=== PATIENT | male | born 1960 | race Caucasian/White ===

== ENCOUNTER → 2016-11-07 | Outpatient (CLI) | payer BC, MEDICAID ==
[2016-11-07 07:52] LABS: CH 30.6; CHCM 32.3; HCT 48.9 % (39.0-53.0); HDW 2.29; HGB 15.9 gm/dL (13.0-17.5); MCHC 32.6 g/dL (31.0-37.0); MCV 95.1 fL (80.0-100.0); Mean Platelet Volume 8.4; RBC 5.14 m/uL (4.30-5.90); RDW 12.6 % (11.5-15.5); WBC 6.9 k/uL (3.8-10.6)
[2016-11-07 10:53] LABS: ALT 36 U/L (21-72); AST 25 U/L (17-59); Alkaline Phosphatase 90 U/L (38-126); Anion Gap 10 mmol/L; Bilirubin, Delta 0.4 mg/dL (0.0-0.2); Blood Urea Nitrogen 18 mg/dL (9-20); Calcium 9.7 mg/dL (8.4-10.2); Carbon Dioxide 27 mmol/L (22-30); Chloride 107 mmol/L (98-107); Cholesterol 187 mg/dL (<200); Glucose 98 mg/dL (74-99); HDL Cholesterol 45 mg/dL (40-60); Non-African American GFR(MDRD) >60 (>60 ml/min/1.73 sqM); Potassium 5.2 mmol/L (3.5-5.1); Sodium 144 mmol/L (137-145); Total Bilirubin 0.9 mg/dL (0.2-1.3); Total Protein 7.5 g/dL (6.3-8.2); Triglycerides 73 mg/dL (<150)
[2016-11-07 11:26] LABS: Prostate Specific Antigen 0.93 ng/mL (0.00-4.00)
== END | disposition home or self-care (01) ==
LOC: LABWHC1 07:28
PROVIDERS: ATTEND Family Medicine
DX: Z71.3 Dietary counseling and surveillance (principal); Z71.89 Other specified counseling; Z12.5 Encounter for screening for malignant neoplasm of prostate
CPT/HCPCS: 36415; 80053; 80061; 82248; 84153; 84439; 84443; 85027

== ENCOUNTER → 2016-12-24 | Outpatient (CLI) | payer BC, MEDICAID ==
--- NOTE | 2016-12-24 12:07 | CT ---
EXAMINATION TYPE: CT heart w calcium score DATE OF EXAM: 12/24/2016 11:46 AM COMPARISON: NONE HISTORY: Screening for cardiovascular disorder. 213.9 CT DLP: 47.1 mGycm Automated exposure control for dose reduction was used. CT CALCIUM SCORING Coronary calcium is a marker for plaque (fatty deposits) in a blood vessel or atherosclerosis (harden ing of the arteries). The presence and amount of calcium detected in a coronary artery by the CT sca n, indicates the presence and amount of atherosclerotic plaque. These calcium deposits appear years before the development of heart disease symptoms such as chest pain and shortness of breath. A calcium score is computed for each of the coronary arteries based upon the volume and density of th e calcium deposits. This can be referred to as your calcified plaque burden. It does not correspond directly to the percentage of narrowing in the artery but does correlate with the severity of the un derlying coronary atherosclerosis. PROCEDURE TECHNIQUE - Prospective Gating was used. Slice thickness: 3mm. Density threshold (HU): 130, Pixel threshold: 3, Algorithm: discrete. RESULTS Region: LM Calcium Score ([place]): 0 Volume (mm3): 0 Mass (g): 0 Region: RCA Calcium Score ([place]): 0 Volume (mm3): 0 Mass (g): 0 Region: LAD Calcium Score ([place]): 1 Volume (mm3): 3 Mass (g): .54 Region: CX Calcium Score ([place]): 0 Volume (mm3): 0 Mass (g): 0 Total: Calcium Score ([place]): 1 Volume (mm3): 3 Mass (g): .54 TOTAL CALCIUM SCORE: 1 OTHER: The lungs as visualized are clear. Mediastinum is within normal limits. IMPRESSION: Calcium Score: 1 Implication: Minimal identifiable plaque. Risk of Coronary Artery Disease: Very unlikely less than 10%
== END | disposition home or self-care (01) ==
LOC: RADXRMAIN 11:06
PROVIDERS: ATTEND Radiology Diagnostic Radiology
DX: Z13.9 Encounter for screening, unspecified (principal)

== ENCOUNTER 2019-09-20 08:03 | Emergency (ER) | payer BC, MEDICAID ==
[2019-09-20 08:28] VITALS: TEMP 98.3
[2019-09-20] MEDS ORDERED: SODIUM CHLORIDE 0.9% 500 ML 500 ML IV STA (08:51)
[2019-09-20] MEDS ORDERED: ASPIRIN 81 MG PO STA (08:52)
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
--- NOTE | 2019-09-20 09:08 | XR ---
EXAMINATION TYPE: XR chest 2V DATE OF EXAM: 09/20/2019 COMPARISON: CT heart December 24, 2016 HISTORY: Difficulty breathing TECHNIQUE: Frontal and lateral views of the chest are obtained. FINDINGS: Overlying EKG leads. There is no focal air space opacity, pleural effusion, or pneumothorax seen. The cardiac silhouette size is within normal limits. The osseous structures are intact. Num erous surgical clips right upper quadrant redemonstrated IMPRESSION: No acute cardiopulmonary process.
[2019-09-20 09:13] LABS: Basophils % (A) 0 %; Eosinophils # (A) 0.1 k/uL (0-0.7); Eosinophils % (A) 1 %; HCT 49.8 % (39.0-53.0); HGB 16.5 gm/dL (13.0-17.5); Lymphocytes # (A) 1.3 k/uL (1.0-4.8); Lymphocytes % (A) 14 %; MCHC 33.1 g/dL (31.0-37.0); MCV 93.7 fL (80.0-100.0); Mean Platelet Volume 8.7; Monocytes # (A) 0.5 k/uL (0-1.0); Monocytes % (A) 6 %; Neutrophils # (A) 7.1 k/uL (1.3-7.7); Neutrophils % (A) 77 %; Platelet Count 171 k/uL (150-450); RBC 5.31 m/uL (4.30-5.90); RDW 12.4 % (11.5-15.5); WBC 9.3 k/uL (3.8-10.6)
[2019-09-20 09:26] LABS: ALT 24 U/L (4-49); AST 31 U/L (17-59); African American GFR (CKD) >90 (>60 ml/min/1.73 sqM); Albumin 4.7 g/dL (3.5-5.0); Alkaline Phosphatase 104 U/L (38-126); Anion Gap 15 mmol/L; Blood Urea Nitrogen 19 mg/dL (9-20); Calcium 9.3 mg/dL (8.4-10.2); Carbon Dioxide 22 mmol/L (22-30); Chloride 105 mmol/L (98-107); Creatine Kinase 51 U/L (55-170); Glucose 106 mg/dL (74-99); Magnesium 2.1 mg/dL (1.6-2.3); Non-African American GFR(CKD) >90 (>60 ml/min/1.73 sqM); Sodium 142 mmol/L (137-145); Total Bilirubin 1.7 mg/dL (0.2-1.3); Total Protein 8.2 g/dL (6.3-8.2)
[2019-09-20 09:30] LABS: Potassium 4.6 mmol/L (3.5-5.1)
[2019-09-20 09:38] LABS: INR 1.1 (<1.2); Partial Thromboplastin Time 22.4 sec (22.0-30.0); Prothrombin Time 10.9 sec (9.0-12.0)
[2019-09-20 09:39] LABS: Appearance,Urine Clear (Clear); Bilirubin,Urine Negative (Negative); Blood,Urine Negative (Negative); Color,Urine Yellow; Glucose,Urine (UA) Negative (Negative); Ketones,Urine 1+ (Negative); Leukocyte Esterase,Urine Negative (Negative); Nitrite,Urine Negative (Negative); Protein,Urine Trace (Negative); Specific Gravity,Urine 1.028 (1.001-1.035)
[2019-09-20 09:46] LABS: D-Dimer 12.79 mg/L FEU (<0.60)
[2019-09-20] MEDS ORDERED: methylPREDNISolone SOD SUCCI 125 MG/2 ML VIAL IV STA (10:08)
[2019-09-20] MEDS ORDERED: FAMOTIDINE 20 MG/2 ML VIAL IV STA (10:08)
[2019-09-20] MEDS ORDERED: diphenhydrAMINE 50 MG/ML 1 ML VIAL IVP STA (10:09)
--- NOTE | 2019-09-20 10:20 | CT ---
EXAMINATION TYPE: CT chest angio for PE DATE OF EXAM: 09/20/2019 COMPARISON: None HISTORY: Elevated d dimer, SOB, chest pain CT DLP: 397.3 mGycm Automated exposure control for dose reduction was used. CONTRAST: CT Chest for pulmonary embolism performed with with IV Contrast, patient injected with 100 mL of Isov ue 370. FINDINGS: LUNGS: Subsegmental areas of consolidation are noted bilaterally greater within the left lower lobe p osteriorly may most likely on the basis of atelectasis. No pneumothorax. Tiny left pleural effusion n oted. No overt failure. MEDIASTINUM: There is a large area of thrombus within the right main pulmonary artery extending to th e secondary branches. There is a smaller secondary branch pulmonary embolism left extending into the distal branches of the upper lobe. Aorta of normal caliber. No evidence of dissection. The heart is m ildly enlarged. Atherosclerotic changes are seen. Very mild coronary artery calcification noted. OTHER: Images of the upper abdomen demonstrate postsurgical change involving the liver correlate cli nically for confirmation. Hypertrophic change of the vertebral column. IMPRESSION: 1. Bilateral acute pulmonary embolism involving the right main pulmonary artery and its secondary\dis edward branches. Smaller component secondary and distal branch left upper lobe acute pulmonary embolism. The right ventricular to left ventricular ratio is greater than [address] rain. 2. Nonspecific groundglass changes involving the lung bases greater on the left. Atelectasis versus p neumonitis or pneumonia correlate clinically. Tiny left pleural effusion noted. 3. Apparent postsurgical change involving the liver correlate clinically.
[2019-09-20] MEDS ORDERED: HEPARIN SODIUM,PORCINE 5,000 UNIT/ML 1 ML VIAL IV PRN (10:27)
[2019-09-20] MEDS ORDERED: HEPARIN SODIUM,PORCINE 10,000 UNIT/ML 1 ML VIAL IV ONE (10:27)
[2019-09-20] MEDS ORDERED: HEPARIN SOD,PORK IN 0.45% NACL 25,000 UNIT in 0.45% NACL 1 250ML.BAG IV SCH (10:30)
[2019-09-20 11:00] VITALS: BP 164/105
[2019-09-20 11:32] VITALS: PULSE 68; RESP 16
== END 2019-09-20 11:32 | disposition other institution (70) ==
LOC: EC 08:03
DX: I26.99 Other pulmonary embolism without acute cor pulmonale (principal); R10.9 Unspecified abdominal pain; M79.662 Pain in left lower leg; Z88.5 Allergy status to narcotic agent
CPT/HCPCS: 36415; 93005; 85379; 83880; 80053; 82550; 83735; 84484; 85025; 85610; 85730; 81003; 87502; 71046; 71275; 99285; 96365; 96375 ×3; 96376; 96361 ×2; J1200; J1644 ×2; J2930; Q9967

== ENCOUNTER → 2020-05-04 | Outpatient (CLI) | payer MEDICAID ==
--- NOTE | 2020-05-04 11:59 | ECHOF ---
Referral Reason:R06.02 shortness of breath MEASUREMENTS -------- HEIGHT: 177.8 cm WEIGHT: 90.7 kg BP: 134/79 RVIDd: 3.6 cm (< 3.3) IVSd: 1.4 cm (0.6 - 1.1) LVIDd: 3.6 cm (3.9 - 5.3) LVPWd: 1.5 cm (0.6 - 1.1) IVSs: 1.7 cm LVIDs: 2.5 cm LVPWs: 2.0 cm LAESV Index (A-L): 33.29 ml/m Ao Diam: 3.0 cm (2.0 - 3.7) AV Cusp: 2.5 cm (1.5 - 2.6) MV EXCURSION: 18.048 mm (> 18.000) MV EF SLOPE: 87 mm/s (70 - 150) EPSS: 0.5 cm MV E Oskar: 0.80 m/s MV DecT: 150 ms MV A Oskar: 0.72 m/s MV E/A Ratio: 1.11 RAP: 5.00 mmHg RVSP: 33.18 mmHg FINDINGS -------- This was a technically adequate study. The left ventricular size is normal. There is mild concentric left ventricular hypertrophy. Overa ll left ventricular systolic function is normal with, an EF between 55 - 60 %. The diastolic fillin g pattern is normal for the age of the patient 11.93. The right ventricle is normal in size. LA is midly dilated 29-33ml/m2. The right atrium is mildly enlarged. Interatrial and interventricular septum intact. The aortic valve is trileaflet and appears structurally normal. There is no evidence of aortic regu rgitation. There is no evidence of aortic stenosis. Mild mitral regurgitation is present. Mild tricuspid regurgitation present. There is borderline pulmonary hypertension. The right ventr icular systolic pressure, as measured by Doppler, is 33.18mmHg. Trace/mild (physiologic) pulmonic regurgitation. The aortic root size is normal. The inferior vena cava is mildly dilated. There is no pericardial effusion. CONCLUSIONS -------- 1. The left ventricular size is normal. 2. Overall left ventricular systolic function is normal with, an EF between 55 - 60 %. 3. The diastolic filling pattern is normal for the age of the patient 11.93 4. LA is midly dilated 29-33ml/m2. 5. The right atrium is mildly enlarged. 6. Mild mitral regurgitation is present. 7. Mild tricuspid regurgitation present. 8. There is borderline pulmonary hypertension. 9. Trace/mild (physiologic) pulmonic regurgitation. 10. The inferior vena cava is mildly dilated. ANTIQUE COLLECTOR: Nica Schmidt RDCS
--- NOTE | 2020-05-04 13:05 | P.STRESS ---
- Stress Test Note Stress Test Results/Findings: Exam Performed: stress echo exercise Exam Date: 05/04/20 Reason for Exam: DYSPNEA Height: 5 ft 10 in Weight: 200 kg Protocol: DALLIN Stage: 4 Duration of Exercise: 10:15 Resting Heart Rate: 64 Resting Blood Pressure: 134/79 Maximum Achieved Heart Rate: 147 Maximum Achieved Blood Pressure: 210/83 85% PMHR: 134 100% PMHR: 158 METS: 11.5 Technologist Comment: Stress Test Results/Findings: Patient underwent exercise stress EKG with a Dallin protocol treadmill stress test. Patient exercised into Stage 4 for a total of 10 minutes 15 seconds reaching a total of 11.5 METS. Patient's maximum heart rate was 147 which represented 93 % age-predicted maximum heart rate. Stress EKG findings: At baseline patient's EKG showed normal sinus rhythm with a heart rate of 64 bpm, normal axis, T-wave flattening in aVL. At peak exercise, EKG showed abnormal response with 2.0 to 2.[address] depressions in inferior and lateral leads concerning for ischemia.. Conclusions: 1. Abnormal EKG response to exercise with 2.0-2.[address] depressions in the inferior leads concerning for ischemia. May consider addition of imaging modality for higher specificity. Clinical correlation recommended. 2. Good exercise capacity.
== END | disposition home or self-care (01) ==
LOC: RADNMMAIN 09:49
PROVIDERS: ATTEND Internal Medicine Cardiovascular Disease
DX: R94.31 Abnormal electrocardiogram [ECG] [EKG] (principal); R06.02 Shortness of breath
CPT/HCPCS: 93306; 93351

== ENCOUNTER → 2020-06-20 | Outpatient (CLI) | payer MEDICAID ==
[2020-06-20 10:30] LABS: HCT 49.6 % (39.0-53.0); HGB 15.9 gm/dL (13.0-17.5); MCH 31.1 pg (25.0-35.0); MCV 97.3 fL (80.0-100.0); Mean Platelet Volume 8.2; Platelet Count 203 k/uL (150-450); RDW 12.5 % (11.5-15.5); WBC 6.2 k/uL (3.8-10.6)
[2020-06-20 10:50] LABS: African American GFR (CKD) >90 (>60 ml/min/1.73 sqM); Anion Gap 5 mmol/L; Blood Urea Nitrogen 18 mg/dL (9-20); Carbon Dioxide 26 mmol/L (22-30); Chloride 107 mmol/L (98-107); Non-African American GFR(CKD) 86 (>60 ml/min/1.73 sqM); Potassium 4.5 mmol/L (3.5-5.1); Sodium 138 mmol/L (137-145)
== END | disposition home or self-care (01) ==
LOC: LABPAT 09:31
PROVIDERS: ATTEND Internal Medicine Cardiovascular Disease
DX: Z01.818 Encounter for other preprocedural examination (principal); R94.39 Abnormal result of other cardiovascular function study
CPT/HCPCS: 36415; 80051; 82565; 84520; 85027

== ENCOUNTER 2020-06-25 07:48 | Day surgery (SDC) | payer MEDICAID ==
[2020-06-21 09:41] VITALS: BMI 28.7
[~2020-06-25 07:48] MED LIST: ALPRAZolam 0.25 MG TAB PO PRN; ALPRAZolam 0.5 MG TAB PO PRN; ASPIRIN 325 MG TAB PO STA; ATORVASTATIN 80 MG TAB PO STA; NITROGLYCERIN SL TABS 0.4 MG TAB SUBLINGUAL PRN; SODIUM CHLORIDE 0.9% 1,000 ML in EMPTY BAG 1 BAG IV ONE
[2020-06-25] MEDS ORDERED: SODIUM CHLORIDE 0.9% 1,000 ML IV ONE (08:11)
[2020-06-25 08:16] VITALS: RESP 16; TEMP 97.9
[2020-06-25] MEDS ORDERED: VERAPAMIL 2.5 MG/ML 2 ML AMP ONE (09:37)
[2020-06-25] MEDS ORDERED: LIDOCAINE 1% INJ 10MG/ML (20 ML MDV) ONE (09:37)
[2020-06-25] MEDS ORDERED: fentaNYL (PF) 50 MCG/ML 2 ML AMP ONE (09:37)
[2020-06-25] MEDS ORDERED: HEPARIN SODIUM 1,000 UN/ML (10ML VL) ONE (09:38)
[2020-06-25] MEDS ORDERED: fentaNYL (PF) 50 MCG/ML 2 ML AMP IV ONE (09:46)
[2020-06-25] MEDS ORDERED: MIDAZOLAM 2 MG/2 ML VIAL IV ONE ×2 (09:46→11:13)
[2020-06-25] MEDS ORDERED: LIDOCAINE 1% INJ 10MG/ML (20 ML MDV) SQ ONE (11:13)
[2020-06-25] MEDS ORDERED: VERAPAMIL SYRINGE (5 MG/10 ML) INTRAARTER ONE (11:18)
[2020-06-25] MEDS ORDERED: IOPAMIDOL-370 125ML BTL INJ ONE (11:28)
[2020-06-25] MEDS ORDERED: RX INFO: IV CONTRAST WAS GIVEN 1 EACH MISC MISCELLANE PRN (11:41)
--- NOTE | 2020-06-25 12:27 | P.CARDCATH ---
Date of Procedure: 06/25/20 Description of Procedure: PROCEDURES PERFORMED: Left heart catheterization, bilateral coronary angiography INDICATION: Abnormal stress test, decreased exercise tolerance and dyspnea on exertion HISTORY: Patient is a pleasant 60-year-old male with history of PE who sees Dr. Sears. Patient has been having increasing dyspnea on exertion and decrease in exercise tolerance. He is fairly active running half marathons however has noted a decrease in his exercise tolerance which did not coincide directly with his PE. Therefore he had a stress echo performed where he did have an abnormal EKG portion as well as echo portion and therefore recommendation was for heart catheterization. CONSENT:I have discussed the risks, benefits and alternative therapies for the above-mentioned procedure and for both sedation/analgesia as well as necessary blood product administration, if indicated, as they pertain to this patient. The patient has indicated understanding and acceptance of the risks and procedures discussed. PROCEDURE: After the risks, benefits and alternatives of the above mentioned procedure explained in detail with the patient, informed consent was obtained. Patient was taken to the catheterization lab and prepped and draped in usual fashion. 1% lidocaine was used to anesthetize the right radial artery. A 6- Swedish sheath was placed in the right radial artery using modified Seldinger technique. Left coronary angiography was performed with a 5-Swedish JL 3.5 catheter and right coronary angiography was performed with a 5-Swedish JR5 catheter in various views. The JR 5 was advanced into the left ventricle and pressure measurements were obtained. The right radial sheath was removed and a TR band was placed with hemostasis achieved. The patient tolerated the procedure well. Patient was transported back to the post catheterization holding area in stable condition. Conscious Sedation: Patient was monitored under the direct supervision of vision of myself for conscious sedation using Versed and fentanyl for a total duration of 20 minutes HEMODYNAMICS: Aorta: 142/78 LV: 138/4, LVEDP 16 mmHg SELECTIVE CORONARY ARTERIOGRAPHY: LEFT MAIN: The left main is a large caliber vessel which trifurcates into the LAD, ramus and circumflex. There is no significant stenosis. LEFT ANTERIOR DESCENDING CORONARY ARTERY: LAD is a large caliber vessel which wraps around to the apex. There is proximal mild luminal irregularities of 10- 20% and mid LAD mild luminal irregularities. The remainder of the LAD and diagonal are normal. RAMUS INTERMEDIUS: The ramus is a small to moderate caliber vessel without significant stenosis. LEFT CIRCUMFLEX CORONARY ARTERY: Left circumflex is a moderate caliber vessel with mild tender 20% luminal irregularities. RIGHT CORONARY ARTERY: The right coronary artery is a moderate to large caliber vessel which gives off a PDA and PLV branch and is the dominant vessel. There is a 20% ostial RCA stenosis and mild luminal irregularities elsewhere. The origin of the PDA has a 30% stenosis. FINAL IMPRESSION: 1. Mild nonobstructive coronary artery disease as described above. PLAN: 1. Aggressive risk factor modification per most recent ACC/AHA guidelines. 2. Follow-up in the office with Dr Sears in 1-2 weeks.
[2020-06-25 18:43] VITALS: BP 145/67; PULSE 68
== END 2020-06-25 16:23 | disposition home or self-care (01) ==
LOC: CATHCVL 07:48
PROVIDERS: ATTEND Internal Medicine
DX: I25.10 Atherosclerotic heart disease of native coronary artery without angina pectoris (principal); R94.39 Abnormal result of other cardiovascular function study; R06.09 Other forms of dyspnea; R94.31 Abnormal electrocardiogram [ECG] [EKG]; R06.02 Shortness of breath; I50.9 Heart failure, unspecified; I73.9 Peripheral vascular disease, unspecified; Z86.711 Personal history of pulmonary embolism; Z79.01 Long term (current) use of anticoagulants; Z91.048 Other nonmedicinal substance allergy status; Z82.49 Family history of ischemic heart disease and other diseases of the circulatory system
CPT/HCPCS: 93458; C1887; J2250; J2001; J3010; J1644; Q9967

== ENCOUNTER → 2021-04-17 | Outpatient (CLI) | payer MEDICAID ==
[2021-04-17 08:15] LABS: HCT 49.3 % (39.0-53.0); HGB 16.3 gm/dL (13.0-17.5); MCHC 33.1 g/dL (31.0-37.0); MCV 96.7 fL (80.0-100.0); Mean Platelet Volume 8.7; Platelet Count 209 k/uL (150-450); RDW 13.1 % (11.5-15.5); WBC 6.3 k/uL (3.8-10.6)
[2021-04-17 08:44] LABS: African American GFR (CKD) >90 (>60 ml/min/1.73 sqM); Anion Gap 8 mmol/L; Blood Urea Nitrogen 14 mg/dL (9-20); Carbon Dioxide 23 mmol/L (22-30); Chloride 109 mmol/L (98-107); Non-African American GFR(CKD) 89 (>60 ml/min/1.73 sqM); Potassium 4.3 mmol/L (3.5-5.1); Sodium 140 mmol/L (137-145)
== END | disposition home or self-care (01) ==
LOC: LABPAT 07:18
PROVIDERS: ATTEND Internal Medicine Clinical Cardiac Electrophysiology
DX: Z01.812 Encounter for preprocedural laboratory examination (principal); I48.11 Longstanding persistent atrial fibrillation
CPT/HCPCS: 36415; 80051; 82565; 84520; 85027

== ENCOUNTER 2021-04-30 09:56 | Day surgery (SDC) | payer MEDICAID ==
[2021-04-29 10:25] VITALS: BMI 28.7
[~2021-04-30 09:56] MED LIST changes: -ALPRAZolam 0.25 MG TAB PO PRN; -ALPRAZolam 0.5 MG TAB PO PRN; -ASPIRIN 325 MG TAB PO STA; -ATORVASTATIN 80 MG TAB PO STA; +DEXAMETHASONE SOD PHOSPHATE 4 MG/ML 1 ML VIAL IV ONE; +LACTATED RINGERS 1,000 ML IV SCH; +MIDAZOLAM 2 MG/2 ML VIAL IV PRN; -NITROGLYCERIN SL TABS 0.4 MG TAB SUBLINGUAL PRN; +ONDANSETRON 4 MG/2 ML VIAL IVP ONE; +SCOPOLAMINE 1.5MG/72HR PATCH TRANSDERM ONE; +SODIUM CHLORIDE 0.9% 1,000 ML IV SCH; -SODIUM CHLORIDE 0.9% 1,000 ML in EMPTY BAG 1 BAG IV ONE; +fentaNYL (PF) 50 MCG/ML 2 ML AMP IV PRN
[2021-04-30] MEDS ORDERED: SODIUM CHLORIDE 0.9% 1,000 ML IV ONE (10:17)
[2021-04-30] MEDS ORDERED: SODIUM CHLORIDE 0.9% 500 ML 500 ML IV ONE (10:17)
[2021-04-30] MEDS ORDERED: PROTAMINE SULFATE 10 MG/ML 5 ML VIAL IV ONE (11:58)
[2021-04-30] MEDS ORDERED: fentaNYL (PF) 50 MCG/ML 2 ML AMP ONE (11:58)
[2021-04-30] MEDS ORDERED: ISOPROTERENOL 250 MCG/1.25 ML SYR IV ONE (11:58)
[2021-04-30] MEDS ORDERED: ePHEDrine SULFATE/0.9% NACL/PF 50 MG/5 ML SYRINGE IV ONE (11:58)
[2021-04-30] MEDS ORDERED: ONDANSETRON 4 MG/2 ML VIAL ONE (11:58)
[2021-04-30] MEDS ORDERED: PROPOFOL 10 MG/ML 20 ML VIAL IV ONE (11:58)
[2021-04-30] MEDS ORDERED: HEPARIN SODIUM,PORCINE 10,000 UNIT/ML 1 ML VIAL ONE (11:58)
[2021-04-30] MEDS ORDERED: PHENYLEPHRINE-0.9% NACL SYG 1,000 MCG/10 ML SYRINGE ONE (11:58)
[2021-04-30] MEDS ORDERED: MIDAZOLAM 2 MG/2 ML VIAL ONE (11:58)
[2021-04-30] MEDS ORDERED: SUCCINYLCHOLINE CHLORIDE 100 MG/5 ML SYR IV ONE (11:58)
[2021-04-30] MEDS ORDERED: DEXAMETHASONE SOD PHOSPHATE 4 MG/ML 1 ML VIAL ONE (11:58)
[2021-04-30] MEDS ORDERED: IV FLUID CONTINUATION 800 ML IV ONE (12:02)
[2021-04-30] MEDS ORDERED: LIDOCAINE 1% INJ 10MG/ML (20 ML MDV) ONE (12:38)
[2021-04-30] MEDS ORDERED: LIDOCAINE 1% INJ 10MG/ML (20 ML MDV) SQ ONE (12:54)
[2021-04-30] MEDS ORDERED: HEPARIN SOD,PORK IN 0.45% NACL 25,000 UNIT in 0.45% NACL 1 250ML.BAG IV ONE (12:55)
[2021-04-30] MEDS ORDERED: LACTATED RINGERS 1,000 ML IV ONE (14:53)
[2021-04-30] MEDS ORDERED: IOPAMIDOL-370 100ML BTL INJ ONE (15:03)
[2021-04-30] MEDS ORDERED: ACETAMINOPHEN TAB 325 MG TAB PO PRN (15:05)
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
--- NOTE | 2021-04-30 15:11 | P.PRLE ---
RE: Jamie Lin Dear Ajith Jamie underwent cryoablation the pulmonary veins. Paroxysmal atrial fibrillation as his episodes continue despite can treat abstinence from alcohol use He did see that there is a significant reduction in his episodes after stopping alcohol consumption At this time and continue ELIQUIS and proceed with a sleep apnea assessment Hopefully with abstinence from alcohol, his blood pressure will also improve Thank you for entrusting me with the care of the patient Warm regards Sincerely Mohsen Gonzalez
--- NOTE | 2021-04-30 15:18 | P.EPPROC ---
- EP Procedure Note Electrophysiology Procedure Note: PROCEDURE A. fib ablation, pulmonary vein isolation DIAGNOSIS Atrial fibrillation, symptomatic, refractory to therapy paroxysmal RESULT No left atrial appendage mass seen on intracardiac echo Successful A. fib ablation/pulmonary vein isolation of all veins using cryo- ablation Complete entrance block in all pulmonary veins confirmed Upper and lower tributaries of the right superior pulmonary vein isolated separately No evidence for phrenic nerve injury Esophageal deflection YES PROCEDURE DETAILS Patient was brought to the EP lab in a fasting state. Written informed consent was obtained prior to the procedure. Procedure performed under general anesthesia After initial muscle relaxant use, muscle relaxants were not given thereafter in order to assess phrenic nerve during procedure. Patient prepped and draped as per protocol Full cryo-set up with standard preparation of the cryoablation tools done. Femoral Venous access obtained on the right and left groins Venous and arterial Sheaths placed. Diagnostic catheters for the high right atrium, phrenic nerve stimulation and pacing, His bundle, RV and coronary sinus placed Intracardiac echo catheter placed. Long sheath placed in the right atrium Left and right transseptal catheterization performed under intracardiac echo guidance. Intravenous heparin with aCT above 300 Later, catheter positioning and balloon positioning in the left atrium, under intracardiac echo guidance Diagnostic EP study with Drug infusion Coronary sinus pacing and recording Baseline measurements Atrial pacing performed from the high right atrium and the coronary sinus Sinus cycle length 1039 ms, GA 148 ms, QRS 90 ms and QT 449 ms AH 69 ms and HV 37 ms AV node Wenckebach block 3:30 milliseconds Sinus node recovery times at 600, 504 ms were 1571, 1258 and 1265 ms respectively. Corresponding corrected to sinus recovery times were prolonged at pacing cycle length of 600 ms Atrial extra stimulation was performed, a ERP 600/300 ms Transseptal catheterization performed RA pressure 13/5/10 LA pressure 23/3/13 Transseptal catheterization performed with standard sheath. The cryoablation sheath was then placed with an over the wire exchange without any acute complications. All 4 pulmonary veins were isolated in the following sequence: Left superior followed by left inferior followed by right superior followed by right inferior The cryo-ablation balloon was placed at the os of each vein 1.5 mL of IV dye was injected to confirm an occluded vein Goal during cryoablation was to achieve complete occlusion of the pulmonary vein, achieve -30 degrees C at 30 seconds and achieve -40 degrees C at 60 seconds and a time to effect of less than 60-90 seconds, . If not the balloon was repositioned to obtain this result After completion of Cryoblation with durations from 180-240 seconds, entrance block was confirmed with the Attain circular catheter in a roving fashion around the antrum of the pulmonary veins Phrenic nerve pacing was performed from the SVC, right innominate vein area and diaphragm voltage was monitored. Diaphragmatic contractions were also monitored manually for strength of contraction. Parameter goals for each cryo freeze Complete occlusion of the appropriate vein -30 degrees C by 30 seconds -40 degrees C by 60 seconds Minimum between minus 40-55 degrees C Thaw time greater than 10 seconds Balloon visualized by intracardiac echo The esophagus was intubated. Esophageal Temperature monitoring with a CIRCA catheter formed. Esophageal deflection for hypothermia of the esophagus below 30 degrees C Left superior and right middle pulmonary veins isolated individually Complete isolation, entrance block Left inferior pulmonary vein Complete isolation, entrance block Right superior pulmonary vein, during phrenic nerve pacing Complete isolation, entrance block Right inferior pulmonary vein, during phrenic nerve pacing Complete isolation, entrance block At the end of the procedure the Achieve catheter was once again used to check for entrance block Phrenic nerve stimulation was performed to confirm diaphragmatic stimulation the end of the procedure Cine fluoroscopy was performed at the very end of the procedure to confirm movement of both diaphragms with inspiration and expiration At the end of the procedure the patient was extubated Heparin was reversed Venous sheaths were removed and hemostasis assured. Vascade used PROCEDURES PERFORMED Diagnostic EP study CS pacing and recording Left and right transseptal catheterization Catheter the mapping of the tachycardia (NOT 3D mapping) Intracardiac echocardiography Pulmonary vein isolation with transseptal and comprehensive EPS, [id number] Drug Infusion +[id number]
[2021-04-30] MEDS ORDERED: ACETAMINOPHEN IV (For NPO) 1,000 MG in EMPTY BAG 1 BAG IVPB ONE (16:00)
[2021-04-30] MEDS: APIXABAN 5 MG TAB PO SCH (20:23)
[2021-05-01] MEDS ORDERED: COLCHICINE 0.6 MG EACH PO ONE (08:30)
[2021-05-01] MEDS: APIXABAN 5 MG TAB PO SCH (08:41)
[2021-05-01] MEDS ORDERED: LOSARTAN 25 MG TAB PO SCH (09:00)
[2021-05-01 09:05] VITALS: BP 159/89; PULSE 61; RESP 17; TEMP 97.7
== END 2021-05-01 14:47 | disposition home or self-care (01) ==
LOC: CATHEP 09:56 → 6NMEDSUR 15:30 → CATHEP 05-01 14:47
PROVIDERS: ATTEND Internal Medicine Clinical Cardiac Electrophysiology
DX: I48.0 Paroxysmal atrial fibrillation (principal); I10 Essential (primary) hypertension; Z86.711 Personal history of pulmonary embolism; Z79.01 Long term (current) use of anticoagulants; Z88.5 Allergy status to narcotic agent; Z91.041 Radiographic dye allergy status; Z86.19 Personal history of other infectious and parasitic diseases; G47.30 Sleep apnea, unspecified
CPT/HCPCS: 93623; 93662; 93609; 93656; C1894 ×2; C1769 ×5; C1760; C1730 ×2; C1759; C1893; C1733; C1766; J2250; J2720; J1644 ×2; J1100; J2405; J2001; J3010; J0131; J2370; J0330; J2704; Q9967

== ENCOUNTER → 2021-06-09 | Outpatient (CLI) | payer MEDICAID ==
--- NOTE | 2021-06-10 03:51 | MR ---
EXAMINATION TYPE: MR knee LT wo con DATE OF EXAM: 06/09/2021 COMPARISON: None HISTORY: Left knee pain x 3 mos, no trauma. Multiplanar multiecho imaging of the left knee without contrast. The anterior and posterior cruciate ligaments are intact there is a moderate size knee joint effusion . The collateral ligaments appear intact. There is horizontal tear through the posterior horn of the medial meniscus. There is also small horiz ontal tear anterior horn of the medial meniscus. Lateral meniscus appears fairly normal. The joint sp aces are fairly normal. There is no evidence of a fracture. I see no bony destructive process. Patell a is intact. IMPRESSION: Knee joint effusion. Horizontal tears of the anterior and posterior horns of the medial meniscus. No evidence of ligamentous tear. No fracture.
== END | disposition home or self-care (01) ==
LOC: RADMRIMAIN 11:43
PROVIDERS: ATTEND Orthopaedic Surgery Sports Medicine
DX: M23.321 Other meniscus derangements, posterior horn of medial meniscus, right knee (principal); M23.311 Other meniscus derangements, anterior horn of medial meniscus, right knee; M25.462 Effusion, left knee

== ENCOUNTER 2022-04-14 14:57 | Emergency (ER) | payer MEDICAID ==
[2022-04-14 15:05] VITALS: BP 132/89; PULSE 71; RESP 20; TEMP 98
[2022-04-14] MEDS ORDERED: SULFAMETHOX-TMP 800-160MG 1 EACH TAB PO STA (15:23)
[2022-04-14] MEDS ORDERED: FAMOTIDINE 20 MG TAB PO STA (15:23)
[2022-04-14] MEDS ORDERED: methylPREDNISolone SOD SUCCI 125 MG/2 ML VIAL IM ONE (15:23)
--- NOTE | 2022-04-14 15:28 | ED ---
General Adult HPI - General Chief complaint: Allergic Reaction Stated complaint: bee sting - lt leg Time Seen by Provider: 04/14/22 15:10 Source: patient, RN notes reviewed, old records reviewed Mode of arrival: ambulatory Limitations: no limitations - History of Present Illness Initial comments: Patient is a 62-year-old male with past medical history remarkable for hypertension, hyperlipidemia, prior PE on blood thinners who presents emergency Department complaining of a bee sting followed by lower extremity swelling. Patient was stung by a bee yesterday and today he has noticed some swelling of his lower left extremity as well as erythema. Was stung on his left medial ankle. Swelling has now spread minorly midway up the calf on the left side with some erythematous changes. No induration. Presents over concern for possible infection versus ALLERGIC reaction to the bee sting. No prior history of ALLERGIES to bee stings. Has been taking Benadryl with some improvement. Denies any difficulty breathing, difficulty in swallowing. Has no other acute complaints at this time. Denies any new weakness, numbness in the left lower extremity. Denies any difficulty with ambulation. - Related Data Home Medications Medication Instructions Recorded Confirmed Apixaban [Eliquis] 5 mg PO BID 06/21/20 04/30/21 Multivitamins, Thera [Multivitamin 1 tab PO DAILY 06/21/20 04/30/21 (formulary)] Previous Rx's Medication Instructions Recorded Losartan [Cozaar] 25 mg PO DAILY #90 tab 05/01/21 Sulfamethox-Tmp 800-160Mg [Bactrim 1 tab PO Q12HR 7 Days #14 tab 04/14/22 DS 800-160 mg] Allergies Allergy/AdvReac Type Severity Reaction Status Date / Time Iodinated Contrast Media Allergy Rash/Hives Verified 04/14/22 15:05 morphine AdvReac Vomiting Verified 04/14/22 15:05 Review of Systems ROS Statement: Those systems with pertinent positive or pertinent negative responses have been documented in the HPI. Review of Systems: CONST: Denies fever EYES: Denies blurry vision ENT: Denies nasal congestion C/V: Denies Chest pain RESP: Denies shortness of breath GI: Denies abdominal pain : Denies dysuria SKIN: Erythematous left lower extremity status post bee sting. MSK: Denies joint pain. NEURO: Denies headache ROS Other: All systems not noted in ROS Statement are negative. Past Medical History Past Medical History: Hyperlipidemia, Hypertension Additional Past Medical History / Comment(s): hepatitis c, pneumothorax, PE History of Any Multi-Drug Resistant Organisms: None Reported Past Surgical History: Orthopedic Surgery Additional Past Surgical History / Comment(s): liver lobe removed, Past Anesthesia/Blood Transfusion Reactions: No Reported Reaction Past Psychological History: No Psychological Hx Reported Smoking Status: Never smoker Past Alcohol Use History: Occasional Past Drug Use History: Marijuana - Past Family History Mother Family Medical History: No Reported History General Exam - General Exam Comments Initial Comments: General: Appears in no acute distress. HEAD: Normal with no signs of head trauma. EYES: PERRLA, EOMI, conjunctiva normal, no discharge. ENT: Hearing grossly intact, normal oropharynx. No stridor. RESPIRATORY: Clear breath sounds bilaterally. No wheezes, rales, or rhonchi. C/V: Regular rate and rhythm. S1 and S2 auscultated, no edema, peripheral pulses 2+ and intact throughout ABD: Abd is soft, nontender, nondistended EXT: Normal range of motion, no obvious deformity SKIN: Erythema and mild edema over the medial aspect of the left ankle. Patient does have some swelling as well as erythema that spreads up the patient's left lower extremity. No induration. No fluctuance. NEURO: Alert and oriented 4. Limitations: no limitations Course Vital Signs 04/14/22 15:02 Temperature 98 F Pulse Rate 71 Respiratory 20 Rate Blood Pressure 132/89 O2 Sat by Pulse 99 Oximetry Medical Decision Making - Medical Decision Making Based on the patient's presentation and physical exam, does appear is having possible mild ALLERGIC reaction to the bee sting, but cannot rule out cellulitis underlying at this time. Vital signs are within normal limits. I do not believe that he requires laboratory studies at this time. I discussed with him at length, and will treat him with steroids, famotidine. His already been taking Benadryl. We'll start him on an antibiotic as well. He was in agreement this plan. We'll provide him with a pen to monitor the spread. Recommended return if she noticed diffuse spreading, worsening infection signs, worsening pain, worsening swelling. His no respiratory symptoms or difficulty swallowing at this time. He was in agreement with this plan. I will provide the patient with a prescription for Bactrim. I instructed the patient to follow up with their PCP in the next 1-3 days. I explained that the patient should return to the emergency department if they experience any worsening symptoms. Strict return precautions were discussed with the patient. The patient expressed understanding of these instructions. I answered all questions that the patient had. The patient was discharged home in good condition with their prescriptions and follow up information. Disposition Clinical Impression: Bug bite, Cellulitis, Allergic reaction Disposition: HOME SELF-CARE Condition: Good Instructions (If sedation given, give patient instructions): Cellulitis (ED) Prescriptions: Sulfamethox-Tmp 800-160Mg [Bactrim DS 800-160 mg] 1 tab PO Q12HR 7 Days #14 tab Is patient prescribed a controlled substance at d/c from ED?: No Referrals: Ajith Wood MD [Primary Care Provider] - 1-2 days Time of Disposition: 15:25
== END 2022-04-14 15:50 | disposition home or self-care (01) ==
LOC: EC 14:57
DX: T63.441A Toxic effect of venom of bees, accidental (unintentional), initial encounter (principal); L03.116 Cellulitis of left lower limb; I10 Essential (primary) hypertension; E78.5 Hyperlipidemia, unspecified; Z86.711 Personal history of pulmonary embolism; Z79.01 Long term (current) use of anticoagulants; Z91.041 Radiographic dye allergy status; Z88.6 Allergy status to analgesic agent
CPT/HCPCS: 99283; 96372; J2930

== ENCOUNTER 2023-05-19 10:16 | Day surgery (SDC) | payer MEDICAID, MEDICARE ==
[2023-05-18 10:33] VITALS: BMI 30.8
[~2023-05-19 10:16] MED LIST changes: -DEXAMETHASONE SOD PHOSPHATE 4 MG/ML 1 ML VIAL IV ONE; -MIDAZOLAM 2 MG/2 ML VIAL IV PRN; -ONDANSETRON 4 MG/2 ML VIAL IVP ONE; -SCOPOLAMINE 1.5MG/72HR PATCH TRANSDERM ONE; -SODIUM CHLORIDE 0.9% 1,000 ML IV SCH; -fentaNYL (PF) 50 MCG/ML 2 ML AMP IV PRN
[2023-05-19 10:44] VITALS: TEMP 97.7
[2023-05-19] MEDS ORDERED: PROPOFOL 10 MG/ML 20 ML VIAL IV ONE (11:11)
--- NOTE | 2023-05-19 11:13 | P.GSHP ---
History of Present Illness H&P Date: 05/19/23 Chief Complaint: Colon cancer screening 63-year-old male here for colonoscopy. Last colonoscopy 15 years ago. That was normal. No bowel complaints. No family history of colon cancer. Past Medical History Past Medical History: Atrial Fibrillation, Hypertension, Pulmonary Embolus (PE) Additional Past Medical History / Comment(s): hepatitis C with tx ., hx pneumothorax, History of Any Multi-Drug Resistant Organisms: None Reported Past Surgical History: Cardiac Ablation, Orthopedic Surgery Additional Past Surgical History / Comment(s): liver lobe removed, julio shoulder surgery, meniscus knee repair, dupuytrens contracture , cardiac ablation for a- fib, colonoscopy Past Anesthesia/Blood Transfusion Reactions: No Reported Reaction Past Psychological History: No Psychological Hx Reported Smoking Status: Never smoker Past Alcohol Use History: Occasional Past Drug Use History: Marijuana Additional Drug Use History / Comment(s): current marijuana use - Past Family History Mother Family Medical History: No Reported History Medications and Allergies Home Medications Medication Instructions Recorded Confirmed Type Apixaban [Eliquis] 5 mg PO BID 06/21/20 05/19/23 History Multivitamins, Thera [Multivitamin 1 tab PO DAILY 06/21/20 05/18/23 History (formulary)] Losartan [Cozaar] 25 mg PO DAILY #90 tab 05/01/21 05/19/23 Rx Allergies Allergy/AdvReac Type Severity Reaction Status Date / Time Iodinated Contrast Media Allergy Rash/Hives Verified 05/19/23 10:39 morphine AdvReac Vomiting Verified 05/19/23 10:39 Surgical - Exam Vital Signs Temp Pulse Resp BP Pulse Ox 97.7 F 60 16 147/80 98 05/19/23 10:42 05/19/23 10:42 05/19/23 10:42 05/19/23 10:42 05/19/23 10:42 Physical exam: General: Well-developed, well-nourished HEENT: Normocephalic, sclerae nonicteric Abdomen: Nontender, nondistended Extremities: No edema Neuro: Alert and oriented Assessment and Plan (1) Colon cancer screening Narrative/Plan: Will proceed with colonoscopy at this time. Current Visit: Yes Status: Acute Code(s): Z12.11 - ENCOUNTER FOR SCREENING FOR MALIGNANT NEOPLASM OF COLON SNOMED Code(s): 332142349
--- NOTE | 2023-05-19 11:32 | P.PCN ---
Date of Procedure: 05/19/23 Procedure(s) Performed: PREOPERATIVE DIAGNOSIS: Screening POSTOPERATIVE DIAGNOSIS: Transverse colon polyp PROCEDURE: Colonoscopy ANESTHESIA: MAC SURGEON: Bert Rico M.D. SPECIMENS: Polyp ENDOSCOPIC PROCEDURE: The patient was placed on the endoscopy table in the left decubitus position. The Olympus colonoscope was inserted into the anus and passed under direct visualization to the base of the cecum. The appendiceal orifice was visualized. From that point the scope was slowly withdrawn inspecting all surfaces carefully. There were no neoplastic inflammatory or polypoid lesions throughout the cecum or ascending colon. In the transverse colon a small polyp was seen and removed using the snare with cautery technique. The remainder of the transverse descending sigmoid and rectum was normal. There is no visible diverticulosis. Digital rectal examination was normal. The patient was taken to the recovery room in stable condition per anesthesia guidelines. RECOMMENDATIONS: Resume diet. Await biopsy results.
[2023-05-19 11:57] VITALS: BP 134/87; PULSE 54; RESP 20
== END 2023-05-19 12:20 ==
LOC: ORWHC2ENDO 10:16
PROVIDERS: ATTEND Surgery
DX: Z12.11 Encounter for screening for malignant neoplasm of colon (principal); D12.3 Benign neoplasm of transverse colon; I10 Essential (primary) hypertension; I48.91 Unspecified atrial fibrillation; F10.90 Alcohol use, unspecified, uncomplicated; F12.90 Cannabis use, unspecified, uncomplicated; Z79.01 Long term (current) use of anticoagulants; Z86.711 Personal history of pulmonary embolism; Z79.899 Other long term (current) drug therapy; Z88.5 Allergy status to narcotic agent; Z88.8 Allergy status to other drugs, medicaments and biological substances
CPT/HCPCS: 88305; 45385; J2704

== ENCOUNTER → 2023-11-06 | Outpatient (CLI) | payer MEDICARE ==
[2023-11-06 18:16] LABS: Basophils # (A) 0.02 X 10*3/uL (0.00-0.10); Basophils % (A) 0.4 %; Eosinophils # (A) 0.07 X 10*3/uL (0.04-0.35); Eosinophils % (A) 1.2 %; HCT 49.6 % (39.6-50.0); HGB 15.9 g/dL (13.0-17.0); Lymphocytes # (A) 1.63 X 10*3/uL (0.90-5.00); MCH 30.3 pg (27.0-32.0); MCHC 32.1 g/dL (32.0-37.0); MCV 94.7 FL (80.0-97.0); Monocytes # (A) 0.62 X 10*3/uL (0.20-1.00); NRBC Per 100 WBC 0 X 10*3/uL (0.00-0.01); Neutrophils # (A) 3.27 X 10*3/uL (1.80-7.70); Neutrophils % (A) 58.2 %; Platelet Count 222 X 10*3/uL (140-440); RBC 5.24 X 10*6/uL (4.40-5.60); RDW 12.1 % (11.5-14.5); WBC 5.62 X 10*3/uL (4.50-10.00)
[2023-11-06 19:08] LABS: ALT 33 U/L (10-49); AST 23 U/L (14-35); Albumin 4.3 g/dL (3.8-4.9); Albumin/Globulin Ratio 1.79 Ratio (1.60-3.17); Alkaline Phosphatase 83 U/L (41-126); Blood Urea Nitrogen 11.3 mg/dL (9.0-27.0); Calcium 9.3 mg/dL (8.7-10.3); Carbon Dioxide 24.7 mmol/L (21.6-31.8); Chloride 108 mmol/L (96-109); Chol/HDL Ratio 4.87 Ratio; Globulin 2.4 g/dL (1.6-3.3); Glucose 103 mg/dL (70-110); LDL Cholesterol,Calculated 116.5 mg/dL (0.0-131.0); Potassium 4.3 mmol/L (3.5-5.5); Prostate Specific Antigen 0.64 ng/mL (0.000-4.500); Sodium 143 mmol/L (135-145); Total Bilirubin 0.4 mg/dL (0.3-1.2); Total Protein 6.7 g/dL (6.2-8.2)
== END | disposition home or self-care (01) ==
LOC: LABWHC1 09:40
PROVIDERS: ATTEND Family Medicine
DX: Z00.01 Encounter for general adult medical examination with abnormal findings (principal); I10 Essential (primary) hypertension
CPT/HCPCS: 36415; 80053; 80061; 82306; 84153; 85025

== ENCOUNTER → 2024-11-21 | Outpatient (CLI) | payer MEDICARE ==
[2024-11-21 15:21] LABS: Basophils # (A) 0.03 X 10*3/uL (0.00-0.10); Basophils % (A) 0.4 %; Eosinophils # (A) 0.11 X 10*3/uL (0.04-0.35); Eosinophils % (A) 1.4 %; HCT 49.1 % (39.6-50.0); Lymphocytes # (A) 2.47 X 10*3/uL (0.90-5.00); Lymphocytes % (A) 30.6 %; MCH 29.5 pg (27.0-32.0); MCHC 32.6 g/dL (32.0-37.0); MCV 90.6 FL (80.0-97.0); Mean Platelet Volume 11.6 FL (9.5-12.2); Monocytes # (A) 0.69 X 10*3/uL (0.20-1.00); Monocytes % (A) 8.6 %; NRBC Per 100 WBC 0 X 10*3/uL (0.00-0.01); Neutrophils # (A) 4.75 X 10*3/uL (1.80-7.70); Neutrophils % (A) 58.9 %; Platelet Count 229 X 10*3/uL (140-440); RBC 5.42 X 10*6/uL (4.40-5.60); WBC 8.06 X 10*3/uL (4.50-10.00)
[2024-11-21 15:58] LABS: ALT 26 U/L (10-49); AST 20 U/L (14-35); Albumin 4.1 g/dL (3.8-4.9); Albumin/Globulin Ratio 1.64 Ratio (1.60-3.17); Alkaline Phosphatase 83 U/L (41-126); BUN/Creat Ratio 16.22 Ratio (12.00-20.00); Blood Urea Nitrogen 14.6 mg/dL (9.0-27.0); Calcium 8.8 mg/dL (8.7-10.3); Carbon Dioxide 22.3 mmol/L (21.6-31.8); Chloride 108 mmol/L (96-109); Globulin 2.5 g/dL (1.6-3.3); Glucose 105 mg/dL (70-110); LDL Cholesterol,Calculated 91.6 mg/dL (0.0-131.0); Potassium 4.4 mmol/L (3.5-5.5); Prostate Specific Antigen 0.58 ng/mL (0.000-4.500); Sodium 141 mmol/L (135-145); Total Bilirubin 0.4 mg/dL (0.3-1.2); Total Protein 6.6 g/dL (6.2-8.2)
== END | disposition home or self-care (01) ==
LOC: LABWHC1 09:55
PROVIDERS: ATTEND Family Medicine
DX: Z00.01 Encounter for general adult medical examination with abnormal findings (principal)
CPT/HCPCS: 36415; 80053; 80061; 82306; 84153; 85025